=== PATIENT | female | born 1950 | race Caucasian/White ===

== ENCOUNTER 2017-12-28 16:44 | Emergency (ER) | payer OTHER ==
[~2017-12-28] VITALS: Ht 160 cm; Wt 59.0 kg
[2017-12-28 16:53] VITALS: Ht 160 cm; Wt 59.0 kg
[2017-12-28 18:03] LABS: CARBON DIOXIDE 29.2 mmol/L (21-32); CHLORIDE SERUM 106 mmol/L (98-107); CREATININE SERUM 0.8 mg/dL (0.6-1.0); GFR1 > 60 mL/min; GLUCOSE SERUM 124 mg/dL (74-106); POTASSIUM SERUM 4.1 mmol/L (3.5-5.1); SODIUM SERUM 142 mmol/L (136-145)
[2017-12-28 18:04] LABS: BASOPHIL % 0.1 % (0-2); PLATELET COUNT 249 x10^3mcL (130-400)
[2017-12-28 18:12] LABS: RED CELL DISTRIBUTION WIDTH 15.5 % (11.5-14.5)
[2017-12-28 23:31] VITALS: BP 115/60
== END 2017-12-28 23:31 | disposition short-term general hospital (02) ==
LOC: ED 16:44
PROVIDERS: Emergency Medicine
DX: F43.0 Acute stress reaction (principal); R55 Syncope and collapse; E11.9 Type 2 diabetes mellitus without complications
CPT/HCPCS: J1885